=== PATIENT | female | born 1975 | race Hispanic/Latino ===

== ENCOUNTER 2022-01-12 08:22 | Emergency (ER) | payer MEDICAID ==
[2022-01-12 11:12] LABS: Calcium 10.5 mg/dL (8.4-10.2)
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
[2022-01-12 13:20] LABS: Basophils # (Auto) 0.1 K/mm3 (0.0-0.1); Basophils % (Auto) 0.7 % (0.0-1.8); Eosinophils # (Auto) 0.2 K/mm3 (0.0-0.4); Hemoglobin 15.7 gm/dl (10.1-14.3); Lymphocytes # (Auto) 2.5 K/mm3 (1.2-5.4); Lymphocytes % (Auto) 21.7 % (13.4-35.0); Mean Corpuscular HGB Conc 33 % (30-34); Mean Corpuscular Volume 87 fl (79-97); Monocytes # (Auto) 1.1 K/mm3 (0.0-0.8); Monocytes % (Auto) 9.6 % (0.0-7.3); Platelet Count 242 K/mm3 (140-440); Red Blood Count 5.51 M/mm3 (3.65-5.03); Red Cell Distribution Width 15.8 % (13.2-15.2)
[2022-01-12 13:51] LABS: Bilirubin,Urine NEG (Negative); Blood,Urine NEG (Negative); Color,Urine Yellow (Yellow); Hyaline Casts,Urine 9 /LPF; Mucus,Urine FEW /HPF; Urobilinogen,Urine < 2.0 mg/dL (<2.0)
[2022-01-12 13:52] LABS: HCG Qualitative,Urine Negative (Negative)
[2022-01-12 13:57] LABS: Benzodiazepines Screen,Urine Negative; Cannabinoid Screen,Urine Negative; Methadone Screen,Urine Negative; Opiate Screen,Urine Negative
[2022-01-12 14:34] LABS: Amphetamine Screen,Urine Positive; Cocaine Screen,Urine Positive
[2022-01-12 19:47] VITALS: BP 158/86
== END 2022-01-12 19:47 | disposition home or self-care (01) ==
LOC: ED 08:22
DX: L29.9 Pruritus, unspecified (principal); N76.0 Acute vaginitis; B96.89 Other specified bacterial agents as the cause of diseases classified elsewhere; F14.10 Cocaine abuse, uncomplicated; F15.10 Other stimulant abuse, uncomplicated; N28.9 Disorder of kidney and ureter, unspecified; F31.9 Bipolar disorder, unspecified; Z20.822 Contact with and (suspected) exposure to COVID-19; Z79.899 Other long term (current) drug therapy
CPT/HCPCS: 36415; 80048; 80307; 81001; 81025; 82550; 84703; 85025; 87210; 99283; U0003; 80320; G0480

== ENCOUNTER 2022-01-14 00:55 | Emergency (ER) | payer MEDICAID ==
[2022-01-14] MEDS ORDERED: ASPIRIN 325 MG TAB PO ONE (01:12)
--- NOTE | 2022-01-14 01:48 | XRay Report ---
CHEST 2 VIEWS INDICATION / CLINICAL INFORMATION: CHEST PAIN. FINDINGS: SUPPORT DEVICES: None. HEART / MEDIASTINUM: No significant abnormality. LUNGS / PLEURA: No significant pulmonary or pleural abnormality. No pneumothorax. ADDITIONAL FINDINGS: No significant additional findings. IMPRESSION: 1. No acute findings. Signer Name: Garrick Forte MD Signed: 01/14/2022 1:44 AM Workstation Name: [employer]
[2022-01-14 01:49] LABS: Basophils # (Auto) 0.1 K/mm3 (0.0-0.1); Basophils % (Auto) 0.8 % (0.0-1.8); Eosinophils # (Auto) 0.4 K/mm3 (0.0-0.4); Eosinophils % (Auto) 3.7 % (0.0-4.3); Hematocrit 44.3 % (30.3-42.9); Hemoglobin 14.7 gm/dl (10.1-14.3); Lymphocytes # (Auto) 2.1 K/mm3 (1.2-5.4); Lymphocytes % (Auto) 19.4 % (13.4-35.0); Mean Corpuscular HGB Conc 33 % (30-34); Mean Corpuscular Volume 88 fl (79-97); Monocytes # (Auto) 0.9 K/mm3 (0.0-0.8); Monocytes % (Auto) 8.1 % (0.0-7.3); Platelet Count 224 K/mm3 (140-440); Red Blood Count 5.04 M/mm3 (3.65-5.03); Red Cell Distribution Width 15.5 % (13.2-15.2)
[2022-01-14 02:10] LABS: Alanine Aminotransferase 31 units/L (7-56); Albumin 3.9 g/dL (3.9-5); BUN/Creatinine Ratio 23; Blood Urea Nitrogen 21 mg/dL (7-17); Calcium 9.4 mg/dL (8.4-10.2); Hemolysis Index 42
[2022-01-14 05:42] LABS: Bilirubin,Urine NEG (Negative); Blood,Urine NEG (Negative); Color,Urine Yellow (Yellow); Mucus,Urine FEW /HPF; Protein,Urine <15 mg/dL mg/dL (Negative); Urobilinogen,Urine < 2.0 mg/dL (<2.0)
[2022-01-14 05:56] LABS: Benzodiazepines Screen,Urine Negative; Cannabinoid Screen,Urine Negative; Methadone Screen,Urine Negative; Opiate Screen,Urine Negative
[2022-01-14 06:14] LABS: Amphetamine Screen,Urine Positive; Cocaine Screen,Urine Positive
[2022-01-14 06:24] VITALS: BP 118/66
[2022-01-14] MEDS ORDERED: LORazepam 2 MG/ML VIAL IM PRN (06:41)
[2022-01-14] MEDS ORDERED: HALOPERIDOL LACTATE 5 MG/1 ML INJ IM PRN (06:41)
[2022-01-14 06:42] LABS: HCG Qualitative,Urine Negative (Negative)
--- NOTE | 2022-01-14 07:22 | Emergency Department Report ---
ED General Adult HPI - General Chief complaint: Chest Pain Stated complaint: CHEST PAIN Time Seen by Provider: 01/14/22 06:08 Source: patient, RN notes reviewed, old records reviewed Mode of arrival: Ambulatory Limitations: No Limitations - History of Present Illness Initial comments: The patient is a 46-year-old female. She has a history of psychiatric disease and homelessness. She also has a history of cocaine/amphetamine abuse. She was seen in this department within the past few days, and evaluated by our psychiatric colleagues, for her complaint of suicidality and homelessness. 1013 is not recommended, and she was provided outpatient resources. The patient was subsequently discharged. She was also medically optimized by my colleague. She presents to the ER today with a complaint of central and left-sided chest pain, that started at 6 PM yesterday, constant, which does not radiate to the back, arms or neck. Patient denies travel, surgery, immobilization, DVT/PE risk factors. The patient reports that she is not . During her history and physical, the patient then states that she is suicidal," you need to put me on a 1013." The patient then states that "being homeless", is giving her pain, and she does not like being homeless. She also endorses a chronic pruritic rash. She was evaluated for her rash yesterday by my colleague. -: hour(s) Location: chest Radiation: non-radiation Severity scale (0 -10): 5 Consistency: constant Improves with: none Worsens with: other (Worsens with palpation) - Related Data Previous Rx's Medication Instructions Recorded Last Taken Type Escitalopram Oxalate [Lexapro] 20 mg PO DAILY #30 01/12/22 Unknown Rx Gabapentin 200 mg PO BID #60 capsule 01/12/22 Unknown Rx OLANzapine [ZyPREXA] 7.5 mg PO DAILY #30 tablet 01/12/22 Unknown Rx Permethrin 5% [Acticin 5% CREAM] 1 applicatio TP ONCE 1 Days #1 tube 01/12/22 Unknown Rx Prednisone [predniSONE 10 mg 10 mg PO .TAPER #1 01/12/22 Unknown Rx (6-Day Pack, 21 Tabs)] Sulfamethoxazole/Trimethoprim 1 each PO BID #10 01/12/22 Unknown Rx [Bactrim DS TAB] busPIRone [Buspar] 10 mg PO BID #60 tab 01/12/22 Unknown Rx diphenhydrAMINE [Benadryl CAP] 50 mg PO Q8HR PRN #20 capsule 01/12/22 Unknown Rx metroNIDAZOLE [Flagyl] 500 mg PO Q12HR #1 tab 01/12/22 Unknown Rx Allergies Allergy/AdvReac Type Severity Reaction Status Date / Time No Known Allergies Allergy Verified 01/14/22 06:22 ED Review of Systems ROS: Stated complaint: CHEST PAIN Other details as noted in HPI Constitutional: denies: fever Eyes: denies: eye discharge ENT: denies: congestion Respiratory: shortness of breath. denies: wheezing Cardiovascular: chest pain Gastrointestinal: denies: abdominal pain, vomiting Skin: rash Psychiatric: anxiety, depression, suicidal thoughts ED Past Medical Hx - Social History Smoking Status: Current Every Day Smoker - Medications Home Medications: Home Medications Medication Instructions Recorded Confirmed Last Taken Type Escitalopram Oxalate [Lexapro] 20 mg PO DAILY #30 01/12/22 Unknown Rx Gabapentin 200 mg PO BID #60 capsule 01/12/22 Unknown Rx OLANzapine [ZyPREXA] 7.5 mg PO DAILY #30 tablet 01/12/22 Unknown Rx Permethrin 5% [Acticin 5% CREAM] 1 applicatio TP ONCE 1 Days #1 tube 01/12/22 Unknown Rx Prednisone [predniSONE 10 mg 10 mg PO .TAPER #1 01/12/22 Unknown Rx (6-Day Pack, 21 Tabs)] Sulfamethoxazole/Trimethoprim 1 each PO BID #10 01/12/22 Unknown Rx [Bactrim DS TAB] busPIRone [Buspar] 10 mg PO BID #60 tab 01/12/22 Unknown Rx diphenhydrAMINE [Benadryl CAP] 50 mg PO Q8HR PRN #20 capsule 01/12/22 Unknown Rx metroNIDAZOLE [Flagyl] 500 mg PO Q12HR #1 tab 01/12/22 Unknown Rx ED Physical Exam - General Limitations: No Limitations, Other (Female phytochemistry professor was present during the patient's examination) General appearance: obese - Head Head exam: Present: atraumatic, normocephalic - Eye Eye exam: Present: normal appearance, EOMI. Absent: nystagmus - ENT ENT exam: Present: normal exam, normal orophraynx, mucous membranes moist, normal external ear exam - Neck Neck exam: Present: normal inspection, full ROM. Absent: tenderness, meningismus - Respiratory Respiratory exam: Present: normal lung sounds bilaterally, chest wall tenderness. Absent: respiratory distress, wheezes, rales, rhonchi, stridor - Cardiovascular Cardiovascular Exam: Present: regular rate, normal rhythm, normal heart sounds. Absent: bradycardia, tachycardia, irregular rhythm, systolic murmur, diastolic murmur, rubs, gallop - GI/Abdominal GI/Abdominal exam: Present: soft. Absent: distended, tenderness, guarding, rebound, rigid, pulsatile mass - Extremities Exam Extremities exam: Present: normal inspection, full ROM, other (2+ pulses noted in the bilateral upper and lower extremities. There is no palpable cord. negative Homans sign. Muscular compartments are soft. The pelvis is stable.). Absent: pedal edema, calf tenderness - Back Exam Back exam: Present: normal inspection, full ROM. Absent: tenderness, CVA tenderness (R), CVA tenderness (L), paraspinal tenderness, vertebral tenderness - Neurological Exam Neurological exam: Present: alert, oriented X3, other (No facial droop. Tongue midline. Extraocular movements intact bilaterally. Facial sensation intact to light touch in V1, V2, V3 distribution bilaterally. 5 and a 5 strength in 4 extremities. Sensation intact to light touch in 4 extremities.). Absent: motor sensory deficit - Psychiatric Psychiatric exam: Present: anxious - Skin Skin exam: Present: warm, rash, other (There is diffuse papular rash noted. No insects are noted.) ED Course Vital Signs 01/14/22 01/14/22 01/14/22 01:04 05:21 05:24 Temperature 98.1 F Pulse Rate 113 H Respiratory 16 18 Rate Blood Pressure 138/91 Blood Pressure [Left] O2 Sat by Pulse 98 100 99 Oximetry 01/14/22 01/14/22 01/14/22 05:25 05:30 05:46 Temperature 98.1 F Pulse Rate 79 Respiratory 15 Rate Blood Pressure 144/89 106/69 126/71 Blood Pressure [Left] O2 Sat by Pulse 99 99 96 Oximetry 01/14/22 01/14/22 01/14/22 06:00 06:16 06:19 Temperature 98.7 F Pulse Rate 81 Respiratory 14 Rate Blood Pressure 122/72 118/68 Blood Pressure 118/66 [Left] O2 Sat by Pulse 98 98 98 Oximetry - Reevaluation(s) Reevaluation #1: 01/14/22 07:26 Differential diagnosis, including but not limited to: Malingering, homelessness, secondary gain, costochondritis, bipolar disorder, chronic rash, GERD, gastritis, hiatal hernia, pneumonia, coronary artery disease Assessment and plan: 46-year-old female with resolved tachycardia, who is not currently tachycardic, tachypneic or hypoxic, who denies DVT/pulmonary embolism risk factors, who is low risk by Wells criteria for pulmonary embolism, troponin negative x2, EKG unchanged x2, low risk for major adverse cardiac event as per heart score, equal pulses in the upper and lower extremities, unremarkable chest x-ray, unremarkable mediastinum, no pulsatile abdominal mass, very unlikely to be acute aortic disease, who is likely presenting with malingering secondary to homelessness, likely presenting for secondary gain. Placing this patient on a 1013 will not solve or fix this patient is homeless situation, and is likely to encourage maladaptive coping behavior and mechanisms. I will have psychiatry reevaluate the patient, but I anticipate that they will again reiterates discharge for outpatient follow-up. Patient was treated appropriately for her rash yesterday, she does not appear to be superinfected, suspect arthropod bites, she was prescribed permethrin yesterday. Troponin negative x2, EKG unchanged x2. Laboratory studies are essentially unremarkable. At this point in time, disposition as per my psychiatric col leagues. At this point in time, this patient does not appear to have an immediate medical contraindication to psychiatric admission, evaluation, consultation and placement. However, I anticipate that the psychiatric team will advise discharge with outpatient follow-up 01/14/22 11:39 Patient resting comfortably for hours in stretcher. She is currently being evaluated by case management. As expected, the psychiatric team have recommended discharge. Patient informed that she is going to be discharged. Patient given a good Rx affordable prescription card. Patient also given outpatient resources for behavioral health, substance abuse, and homeless fdc resources. Patient has her prescriptions on her from yesterday. ED Medical Decision Making - Lab Data Result diagrams: 01/14/22 01:20 01/14/22 01:20 - EKG Data 01/14/22 07:21 EKG #2 is interpreted at 06: 44 Sinus rhythm, rate 87 bpm. Normal axis, normal P wave axis, Q waves noted in the inferior leads, QTC 4 6 0 ms. This is an abnormal EKG. This is not a STEMI. EKG #1 is interpreted at 12: 59 AM by my colleague. I interpret this EKG at 06: 3 0 a.m. Sinus rhythm, tachycardia, rate 102 bpm. Normal axis, normal P wave axis, a trial enlargement, borderline high left ventricular voltage, and Q waves noted in the inferior leads. Both of these EKGs are abnormal. Neither EKG is consistent with a STEMI. EKG #2 appears to be unchanged from EKG #1. - Radiology Data Radiology results: pending, report reviewed, image reviewed CHEST 2 VIEWS INDICATION / CLINICAL INFORMATION: CHEST PAIN. FINDINGS: SUPPORT DEVICES: None. HEART / MEDIASTINUM: No significant abnormality. LUNGS / PLEURA: No significant pulmonary or pleural abnormality. No pneumothorax. ADDITIONAL FINDINGS: No significant additional findings. IMPRESSION: 1. No acute findings. Signer Name: Garrick Forte MD Signed: 01/14/2022 12:44 AM Workstation Name: [employer] Critical care attestation.: If time is entered above; I have spent that time in minutes in the direct care of this critically ill patient, excluding procedure time. ED Disposition Clinical Impression: Pruritic rash, Amphetamine abuse, Bipolar disorder, Nonspecific chest pain, Ho melessness, Malingering Disposition: 01 HOME / SELF CARE / HOMELESS Is pt being admited?: No Does the pt Need Aspirin: No Condition: Good Instructions: Nonspecific Chest Pain, Adult Additional Instructions: Please follow-up with outpatient resources that have been provided to the patient. Please use the [facility] affordable prescription card to obtain affordable prescriptions. Avoid consumption of alcohol, tobacco, cocaine, marijuana, and recreational drugs. Follow-up with your primary care doctor within the next month. Follow-up with a psychiatrist within the next week. Please return to the emergency room right away with new pain, worsened pain, migration of pain, projectile vomiting, change in mental status, confusion, margot bility tolerate liquid feeds, new, worsened or different symptoms not present on the initial emergency room evaluation OUTPATIENT MENTAL HEALTH RESOURCES [facility], [facility] Suyapa Joseph DE JESUS: [address], [address] [place] [address] [place] [address] [facility]: [facility] [address] [place] [address] [place] [address] [phone] [facility]: [facility]: [address] [place] [address] [facility] [address] [facility]: Chano Lam MD: [address] [facility] [address] [facility] [address] [facility]: [address] [place], [place] [id number] [phone] [place] CRISIS AND ACCESS LINE: Referrals: [facility] [Provider Group] - 3-5 Days [facility]. Health Depart [Outside] - 3-5 Days [facility]. Mental Health [Outside] - 3-5 Days [facility] [Provider Group] - 3-5 Days Heart Score - HEART Score History: Slightly suspicious EKG: Non-specific Age: < 45 Risk factors: 1-2 risk factors Troponin: < normal limit HEART Score: 2 - EKG Read Time Time EKG Completed: 06:44 EKG Read Time: 06:44 - Critical Actions Critical Actions: 0-3 pts:0.9-1.7%risk of adverse cardiac event.Candidate for discharge
--- NOTE | 2022-01-14 10:42 | Consultation ---
History of Present Illness - Reason for Consult Consult date: 01/14/22 Reason for consult: mental health evaluation - History of Present Psychiatric Illness ED Note: The patient is a 46-year-old female. She has a history of psychiatric disease and homelessness. She also has a history of cocaine/amphetamine abuse. She was seen in this department within the past few days, and evaluated by our psychiatric colleagues, for her complaint of suicidality and homelessness. 1013 is not recommended, and she was provided outpatient resources. The patient was subsequently discharged. She was also medically optimized by my colleague. She presents to the ER today with a complaint of central and left-sided chest pain, that started at 6 PM yesterday, constant, which does not radiate to the back, arms or neck. Patient denies travel, surgery, immobilization, DVT/PE risk factors. The patient reports that she is not . During her history and physical, the patient then states that she is suicidal," you need to put me on a 1013." The patient then states that "being homeless", is giving her pain, and she does not like being homeless. She also endorses a chronic pruritic rash. The patient s a 46 year old female with history Bipolar, and PTSD. The patient was seen today. She is calm, alert and oriented x3. The patient is complaining of generalized rash and itching . The patient states that she was unable to fill her prescriptions because she did not have her medicare number. She states she is suicidal because she is homeless. The patient is requesting to speak to case management. PAST PSYCHIATRIC HISTORY: Diagnoses: Bipolar, PTSD Suicide attempts or Self-harm behavior: Denies Prior psychiatric hospitalizations: Yes Substance Abuse history: Methamphetamines Previous psychiatric medications tried: Buspar, Lexapr, gabapentin, zyprexa Outpatient treatment: Denies PAST MEDICAL HISTORY: None reported or document Family Psychiatric History: None reported or documented SOCIAL HISTORY Marital Status: Single Living Arrangements: Homeless Employment Status: Disabled Access to guns/weapons: Denies Education: History of Abuse: Denies Legal History: Denies REVIEW OF SYSTEMS Constitutional: Negative for weight loss ENT: Negative for stridor Respiratory: Negative for cough or hemoptysis All other systems reviewed and are negative MENTAL STATUS EXAMINATION General Appearance and Behavior: Age appropriate, good hygiene, wearing appropriate clothes. calm, cooperative Cooperation: cooperative Psychomotor Behavior: Psychomotor normal Mood: Okay Affect and affective range: congruent with stated mood Thought Process: goal directed Thought Content: None Speech: Normal volume, Regular rate and rhythm Suicidal Ideation: Denies Homicidal Ideation: Denies Hallucinations: Denies Delusions: none elicited Impulse Control: Limited Insight and Judgment: Limited Memory: limited Attention: Attentive Orientation: alert and oriented Assessment and Plan (1) Hx Bipolar Disorder Treatment Plan Lexapro 20mg po daily Buspar 10mg po BID Gabapenin 200mg po BID Zyprexa 7.5mg po daily Sitter: refer to medical Medical: per primary Disposition: Do not recommend acute psychiatric inpatient treatment. The patient understands that if SI/HI or any feelings of endangerment arise she is to seek immediate assistance. The servicing manager to further discuss safety plan and give the patient all necessary outpatient resources The patient to follow up with outpatient in 7 to 14 days upon discharge Will sign off. Thanks Case staffed with Dr. Arteaga Medications and Allergies Medications and Allergies Allergies Allergy/AdvReac Type Severity Reaction Status Date / Time No Known Allergies Allergy Verified 01/14/22 06:22 Home Medications Medication Instructions Recorded Confirmed Last Taken Type Escitalopram Oxalate [Lexapro] 20 mg PO DAILY #30 01/12/22 Unknown Rx Gabapentin 200 mg PO BID #60 capsule 01/12/22 Unknown Rx OLANzapine [ZyPREXA] 7.5 mg PO DAILY #30 tablet 01/12/22 Unknown Rx Permethrin 5% [Acticin 5% CREAM] 1 applicatio TP ONCE 1 Days #1 tube 01/12/22 Unknown Rx Prednisone [predniSONE 10 mg 10 mg PO .TAPER #1 01/12/22 Unknown Rx (6-Day Pack, 21 Tabs)] Sulfamethoxazole/Trimethoprim 1 each PO BID #10 01/12/22 Unknown Rx [Bactrim DS TAB] busPIRone [Buspar] 10 mg PO BID #60 tab 01/12/22 Unknown Rx diphenhydrAMINE [Benadryl CAP] 50 mg PO Q8HR PRN #20 capsule 01/12/22 Unknown Rx metroNIDAZOLE [Flagyl] 500 mg PO Q12HR #1 tab 01/12/22 Unknown Rx Active Meds: Active Medications Haloperidol Lactate (Haloperidol Lactate 5 Mg/1 Ml Inj) 5 mg IM Q6HR PRN PRN Reason: Agitation Lorazepam (Lorazepam 2 Mg/Ml Vial) 2 mg IM Q4HR PRN PRN Reason: Agitation Mental Status Exam - Vital signs Last Vital Signs Temp 98.7 F 01/14/22 06:19 Pulse 81 01/14/22 06:19 Resp 14 01/14/22 06:19 BP 118/66 01/14/22 06:19 Pulse Ox 98 01/14/22 06:19 Results Result Diagrams: 01/14/22 01:20 01/14/22 01:20 Abnormal lab results 01/14/22 01/14/22 01/14/22 Range/Units 01:20 01:20 05:11 RBC 5.04 H (3.65-5.03) M/mm3 Hgb 14.7 H (10.1-14.3) gm/dl Hct 44.3 H (30.3-42.9) % RDW 15.5 H (13.2-15.2) % [place] % (Auto) 8.1 H (0.0-7.3) % [place] # (Auto) 0.9 H (0.0-0.8) K/mm3 Carbon Dioxide 21 L (22-30) mmol/L BUN 21 H (7-17) mg/dL U Epithel Cells (Auto) 30.0 H (0-13.0) /HPF Salicylates (2.8-20.0) mg/dL Acetaminophen (10.0-30.0) ug/mL 01/14/22 01/14/22 Range/Units 06:51 06:51 RBC (3.65-5.03) M/mm3 Hgb (10.1-14.3) gm/dl Hct (30.3-42.9) % RDW (13.2-15.2) % [place] % (Auto) (0.0-7.3) % [place] # (Auto) (0.0-0.8) K/mm3 Carbon Dioxide (22-30) mmol/L BUN (7-17) mg/dL U Epithel Cells (Auto) (0-13.0) /HPF Salicylates < 0.3 L (2.8-20.0) mg/dL Acetaminophen 7.0 L (10.0-30.0) ug/mL All other labs normal.
--- NOTE | 2022-01-17 13:53 | Electrocardiograph Report ---
[facility] Test Date: 2022-01-14 Test Time: 00:59:33 Pat Name: TERRY MARQUEZ Department: Room: Gender: F Budget Report Clerk: NURSE : 1975 Requested By: HAILEE AGUIRRE Order Number: [id number] Reading MD: Isabel Milner Measurements Intervals [place] Rate: 102 P: 75 [place]: 165 QRS: 42 QRSD: 92 T: 64 QT: 343 QTc: 446 Interpretive Statements Sinus tachycardia Biatrial enlargement Possible inferior infarct of undetermined age No previous ECG available for comparison Electronically Signed On 01-17-2022 13:53:12 EDT by Isabel Milner
--- NOTE | 2022-01-17 13:54 | Electrocardiograph Report ---
[facility] Test Date: 2022-01-14 Test Time: 06:44:10 Pat Name: TERRY MARQUEZ Department: Room: Gender: F Animal Nutrition Consultant: DENZEL : 1975 Requested By: HAILEE AGUIRRE Order Number: [id number] Reading MD: Isabel Milner Measurements Intervals [place] Rate: 87 P: 64 [place]: 182 QRS: 19 QRSD: 84 T: 64 QT: 383 QTc: 460 Interpretive Statements Sinus rhythm Probable left atrial enlargement Early repolarization ST changes versus inferior infarct of undetermined age No previous ECG available for comparison Electronically Signed On 01-17-2022 13:54:21 EDT by Isabel Milner
== END 2022-01-14 11:51 | disposition home or self-care (01) ==
LOC: ED 00:55
DX: R07.89 Other chest pain (principal); R21 Rash and other nonspecific skin eruption; F31.9 Bipolar disorder, unspecified; Z76.5 Malingerer [conscious simulation]; F15.10 Other stimulant abuse, uncomplicated; F17.200 Nicotine dependence, unspecified, uncomplicated; Z79.899 Other long term (current) drug therapy
CPT/HCPCS: 36415; 71046; 80053; 80307; 80320; 81001; 81025; 84484; 85025; 93005; 99284; G0480